=== PATIENT | female | born 1990 | race African-American/Black ===

== ENCOUNTER 2019-05-11 11:40 | Emergency (ER) | payer SELFPAY ==
[~2019-05-11] VITALS: Ht 180.3 cm; Wt 90.0 kg
[2019-05-11] MEDS ORDERED: ONDANSETRON 4MG ODT PO ONE (12:45)
[2019-05-11] MEDS ORDERED: MORPHINE SULFATE 10 MG/ML CPJ IM ONE (12:45)
[2019-05-11 13:11] LABS: CLARITY URINE CLEAR (CLEAR); COLOR URINE YELLOW (YELLOW); KETONES URINE NEGATIVE (NEGATIVE); LEUKOCYTE ESTERASE URINE 1+ (NEGATIVE); NITRITE URINE NEGATIVE (NEGATIVE); OCCULT BLOOD URINE 2+ (NEGATIVE); PH URINE 5.5 (4.5-8.0); PROTEIN URINE NEGATIVE (NEGATIVE); SPECIFIC GRAVITY URINE 1.017 (1.005-1.030); UROBILINOGEN URINE 0.2 E.U./dL (0.2-1.0)
[2019-05-11] MEDS ORDERED: KETOROLAC 30MG/ML VIAL IM ONE (13:45)
[2019-05-11] MEDS ORDERED: PREDNISONE 20MG TABLET PO ONE (13:45)
[2019-05-11 13:50] VITALS: BP 118/50
== END 2019-05-11 15:12 | disposition home or self-care (01) ==
LOC: ER 12:59
DX: N39.0 Urinary tract infection, site not specified (principal); R20.0 Anesthesia of skin; R20.2 Paresthesia of skin
CPT/HCPCS: 81003; 81025; 96372; 99283; J1885; J2270; J7512; Q0162

== ENCOUNTER 2020-05-24 21:03 | Emergency (ER) | payer MEDICAID ==
[~2020-05-24] VITALS: Ht 180.3 cm; Wt 109.0 kg
[~2020-05-24 21:03] MED LIST: IBUP-2030 PO
[2020-05-24] MEDS ORDERED: HYDROCODONE/ACETAMINOPHEN 5/325MG TABLET PO ONE (23:45)
[2020-05-25 00:36] VITALS: BP 128/85
== END 2020-05-25 00:45 | disposition home or self-care (01) ==
LOC: ER 21:03
DX: M79.605 Pain in left leg (principal)
CPT/HCPCS: 93971; 99284

== ENCOUNTER 2024-04-30 21:47 | Emergency (ER) | payer MEDICAID ==
[~2024-04-30] VITALS: Ht 180.3 cm; Wt 210.8 kg
[2024-04-30 21:53] VITALS: BP 145/81; TEMP 98.4; O2SAT 100
[2024-04-30 21:58] VITALS: PULSE 70; RESP 20
== END 2024-04-30 23:42 | disposition left against medical advice (07) ==
LOC: ER 21:47
DX: L98.498 Non-pressure chronic ulcer of skin of other sites with other specified severity (principal)
CPT/HCPCS: 99281